=== PATIENT | male | born 1990 | race Two or more races ===

== ENCOUNTER 2021-05-19 14:05 | Emergency (ER) | payer OTHER ==
[~2021-05-19] VITALS: Ht 180.3 cm; Wt 79.4 kg
== END 2021-05-19 17:07 | disposition home or self-care (01) ==
LOC: ER 14:05
DX: U07.1 COVID-19 (principal); R06.02 Shortness of breath

== ENCOUNTER 2022-03-03 23:04 | Emergency (ER) | payer OTHER ==
[~2022-03-03] VITALS: Ht 180.3 cm; Wt 81.6 kg
[2022-03-04] MEDS ORDERED: KETO10TA2 PO (04:07)
== END 2022-03-04 04:27 ==
LOC: ER 23:04
DX: M25.522 Pain in left elbow (principal); M25.512 Pain in left shoulder